=== PATIENT | female | born 1995 | race Caucasian/White ===

== ENCOUNTER 2020-07-27 08:29 | Emergency (ER) | payer SELFPAY ==
[2020-07-27] MEDS ORDERED: Dexamethasone 10 MG/ML VIAL ONE (10:21)
[2020-07-27] MEDS ORDERED: Bicillin LA 1.2 MILLION UNITS/2 ML SYRINGE ONE (10:21)
[2020-07-27 16:45] LABS: SARS-CoV-2 MS2 Positive; SARS-CoV-2 N Gene Negative; SARS-CoV-2 S Gene Negative; SARS-CoV-2 by NAA Not Detected (NotDetected); SARS-CoV-2 orf1ab Negative
== END 2020-07-27 10:30 | disposition home or self-care (01) ==
LOC: ERS 08:29
DX: J02.0 Streptococcal pharyngitis (principal); Z20.828 Contact with and (suspected) exposure to other viral communicable diseases; G43.909 Migraine, unspecified, not intractable, without status migrainosus; F17.210 Nicotine dependence, cigarettes, uncomplicated
CPT/HCPCS: 87430; 87635; 96372; 99283; J0561; J1100; U0003

== ENCOUNTER 2020-10-25 17:05 | Emergency (ER) | payer SELFPAY ==
--- NOTE | 2020-10-25 17:42 | RAD ---
Left ankle 3 views HISTORY: Left ankle injury. FINDINGS: Comminuted predominantly oblique fracture of the distal fibula is present at and just above the level of the ankle mortise. There is minimal lateral displacement of the major distal fragment and minimal apex medial angulation. Talar dome and mortise are intact. Medial and posterior malleoli within normal limits. IMPRESSION : Minimally displaced Bello class C fracture left lateral malleolus.
[2020-10-25] MEDS ORDERED: Morphine 4 MG/ML VIAL ONE (21:35)
[2020-10-25] MEDS ORDERED: Ketorolac Tromethamine 30 MG/ML VIAL ONE (21:36)
== END 2020-10-25 22:55 | disposition home or self-care (01) ==
LOC: ERS 17:05
DX: S82.62XA Displaced fracture of lateral malleolus of left fibula, initial encounter for closed fracture (principal); X50.1XXA Overexertion from prolonged static or awkward postures, initial encounter
CPT/HCPCS: 29515; 96372; J1885; J2270

== ENCOUNTER 2020-11-23 10:50 | Emergency (ER) | payer SELFPAY | END 2020-11-23 13:10 | disposition home or self-care (01) | LOC: ERS 10:50 | DX: J02.9 Acute pharyngitis, unspecified (principal); F17.210 Nicotine dependence, cigarettes, uncomplicated | CPT/HCPCS: 87081; 87430; 99283 ==

== ENCOUNTER 2021-05-20 09:00 | Emergency (ER) | payer OTHER, SELFPAY ==
[2021-05-20] MEDS ORDERED: Boostrix 0.5 ML (Tdap) VIAL ONE (10:28)
[2021-05-20] MEDS ORDERED: Ibuprofen 200 MG TAB ONE (10:28)
== END 2021-05-20 11:20 | disposition home or self-care (01) ==
LOC: EEVIPCON 09:00 → ERS 09:00
DX: S05.12XA Contusion of eyeball and orbital tissues, left eye, initial encounter (principal); S30.810A Abrasion of lower back and pelvis, initial encounter; S50.312A Abrasion of left elbow, initial encounter; S50.311A Abrasion of right elbow, initial encounter; S80.212A Abrasion, left knee, initial encounter; S80.211A Abrasion, right knee, initial encounter; S09.90XA Unspecified injury of head, initial encounter; R10.814 Left lower quadrant abdominal tenderness; R10.813 Right lower quadrant abdominal tenderness; F17.210 Nicotine dependence, cigarettes, uncomplicated; W01.0XXA Fall on same level from slipping, tripping and stumbling without subsequent striking against object, initial encounter; Y93.01 Activity, walking, marching and hiking; Y92.411 Interstate highway as the place of occurrence of the external cause; Y09 Assault by unspecified means; Z23 Encounter for immunization
CPT/HCPCS: 70450; 70486; 71046; 72125; 90471; 90715

== ENCOUNTER 2021-11-06 19:21 | Emergency (ER) | payer BC, MEDICAID ==
[2021-11-06] MEDS ORDERED: Ketorolac Tromethamine 30 MG/ML VIAL ONE (19:56)
[2021-11-06 20:33] LABS: #Lymphocytes 1.8 thou/uL (1.20-3.40); #Monocytes 0.4 thou/uL (0.11-0.59); #Neutrophils 6.1 thou/uL (1.40-6.50); %Basophils 0.5 % (0.0-1.0); %Eosinophils 0.4 % (0.0-10.0); %Lymphocytes 21.4 % (21.0-51.0); %Monocytes 5.3 % (0.0-10.0); %Neutrophils 72.5 % (42.0-75.0); Hemoglobin 14.7 g/dL (12.0-16.0); Mean Corpuscular HGB CONC 33.2 g/dL (32.0-36.0); Mean Corpuscular Hemoglobin 32.1 pg (27.0-31.0); Mean Corpuscular Volume 96.5 fL (78.0-98.0); Mean Platelet Volume 7.6 fL (7.4-10.4); Platelet Count 285 thou/uL (130-400); RBC Distribution Width 11.9 % (11.5-14.5); White Blood Cell (WBC) Count 8.4 thou/uL (4.8-10.8)
[2021-11-06 20:53] LABS: ALT (SGPT) 23 U/L (8-55); AST (SGOT) 15 U/L (5-34); Albumin 4.5 g/dL (3.5-5.0); Alkaline Phosphatase 72 U/L (40-110); Anion Gap 16 mmol/L (10-20); BUN (Urea Nitrogen) 8 mg/dL (7.0-18.7); Bilirubin, Total 0.5 mg/dL (0.2-1.2); Calc. Creatinine Clearance 0 mL/min (70-130); Carbon Dioxide 23 mmol/L (22-29); Chloride 103 mmol/L (98-107); Globulin 3.1 g/dL (2.4-3.5); Glucose 106 mg/dL (70-105); Potassium 3.9 mmol/L (3.5-5.1); Protein, Total 7.6 g/dL (6.0-8.3); Sodium 138 mmol/L (136-145)
== END 2021-11-06 21:19 | disposition home or self-care (01) ==
LOC: ERS 19:21
DX: B34.9 Viral infection, unspecified (principal); G43.909 Migraine, unspecified, not intractable, without status migrainosus; F17.210 Nicotine dependence, cigarettes, uncomplicated
CPT/HCPCS: 36415; 71045; 80053; 84484; 85025; 93005; 96374; J1885

== ENCOUNTER 2022-01-30 12:48 | Emergency (ER) | payer SELFPAY ==
[2022-01-30 13:29] LABS: #Eosinphils 0.1 thou/uL (0.0-0.7); #Lymphocytes 1.1 thou/uL (1.20-3.40); #Monocytes 0.6 thou/uL (0.11-0.59); #Neutrophils 3.9 thou/uL (1.40-6.50); %Basophils 0.2 % (0.0-1.0); %Eosinophils 2.5 % (0.0-10.0); %Lymphocytes 19.1 % (21.0-51.0); %Monocytes 9.9 % (0.0-10.0); %Neutrophils 68.4 % (42.0-75.0); Hemoglobin 13.9 g/dL (12.0-16.0); Mean Corpuscular HGB CONC 34.2 g/dL (32.0-36.0); Mean Corpuscular Hemoglobin 33.5 pg (27.0-31.0); Mean Platelet Volume 7.8 fL (7.4-10.4); Platelet Count 236 thou/uL (130-400); RBC Distribution Width 11.4 % (11.5-14.5); Red Blood Cell (RBC) Count 4.13 mill/uL (4.20-5.40); White Blood Cell (WBC) Count 5.7 thou/uL (4.8-10.8)
[2022-01-30] MEDS ORDERED: Morphine 4 MG/ML VIAL ONE (13:42)
[2022-01-30] MEDS ORDERED: Ondansetron PF 4 MG/2 ML Vial ONE (13:42)
[2022-01-30 13:50] LABS: ALT (SGPT) 14 U/L (8-55); AST (SGOT) 15 U/L (5-34); Alkaline Phosphatase 65 U/L (40-110); Anion Gap 13 mmol/L (10-20); BUN (Urea Nitrogen) 8 mg/dL (7.0-18.7); Bilirubin, Total 0.3 mg/dL (0.2-1.2); Calc. Creatinine Clearance 0 mL/min (70-130); Calcium 8.9 mg/dL (7.8-10.44); Carbon Dioxide 24 mmol/L (22-29); Chloride 107 mmol/L (98-107); Globulin 2.6 g/dL (2.4-3.5); Glucose 91 mg/dL (70-105); Potassium 3.9 mmol/L (3.5-5.1); Protein, Total 6.6 g/dL (6.0-8.3); Sodium 140 mmol/L (136-145)
[2022-01-30 14:15] LABS: BHCG - Serum Negative (NEGATIVE)
[2022-01-30 14:16] LABS: Pregs Control Background? CLEAR/WHITE (CLR/WHITE); Pregs Control Bar Appear? YES (CONTROL BAR)
[2022-01-30 14:18] LABS: Bilirubin Negative (Negative); Blood, Urine Negative (Negative); Clarity Clear (Clear); Glucose, Urine (Dipstick) Normal (Negative); Ketone, Urine Negative (Negative); Leukocyte Negative Leu/uL (Negative); Nitrite Negative (Negative); Protein, Urine (Dipstick) Negative (Neg-Trace); Specific Gravity, Urine 1.011 (1.002-1.036); Urobilinogen Normal mg/dL (Less than 2); pH, Urine 6.5 (5.0-9.0)
[2022-01-30] MEDS ORDERED: Iopamidol-370 76% 500 ML 1 ML ONE (15:21)
== END 2022-01-30 15:24 | disposition home or self-care (01) ==
LOC: ERS 12:48
DX: R19.7 Diarrhea, unspecified (principal); R11.2 Nausea with vomiting, unspecified; F17.210 Nicotine dependence, cigarettes, uncomplicated
CPT/HCPCS: 74177; 80053; 81003; 83690; 84703; 85025; 96361; 96374; 96375; J2270; J2405; Q9967

== ENCOUNTER 2022-03-26 15:08 | Emergency (ER) | payer SELFPAY | END 2022-03-26 15:40 | disposition home or self-care (01) | LOC: ERS 15:08 | DX: S01.01XD Laceration without foreign body of scalp, subsequent encounter (principal); F17.210 Nicotine dependence, cigarettes, uncomplicated ==

== ENCOUNTER 2022-04-16 20:23 | Emergency (ER) | payer SELFPAY ==
[2022-04-16] MEDS ORDERED: Ketorolac Tromethamine 30 MG/ML VIAL ONE (20:46)
[2022-04-16 20:52] LABS: #Eosinphils 0.1 thou/uL (0.0-0.7); #Lymphocytes 2.7 thou/uL (1.20-3.40); #Monocytes 0.6 thou/uL (0.11-0.59); #Neutrophils 6.4 thou/uL (1.40-6.50); %Basophils 0.3 % (0.0-1.0); %Eosinophils 0.7 % (0.0-10.0); %Lymphocytes 27.9 % (21.0-51.0); %Monocytes 5.7 % (0.0-10.0); %Neutrophils 65.4 % (42.0-75.0); Hemoglobin 14.8 g/dL (12.0-16.0); Mean Corpuscular HGB CONC 34.3 g/dL (32.0-36.0); Mean Corpuscular Hemoglobin 32.6 pg (27.0-31.0); Mean Corpuscular Volume 94.8 fL (78.0-98.0); Mean Platelet Volume 8.2 fL (7.4-10.4); Platelet Count 292 thou/uL (130-400); RBC Distribution Width 11.4 % (11.5-14.5); Red Blood Cell (RBC) Count 4.56 mill/uL (4.20-5.40); White Blood Cell (WBC) Count 9.8 thou/uL (4.8-10.8)
[2022-04-16 20:53] LABS: BHCG - Serum Negative (NEGATIVE); Pregs Control Background? CLEAR/WHITE (CLR/WHITE); Pregs Control Bar Appear? YES (CONTROL BAR)
[2022-04-16 21:14] LABS: ALT (SGPT) 19 U/L (8-55); AST (SGOT) 15 U/L (5-34); Albumin 4.7 g/dL (3.5-5.0); Alkaline Phosphatase 72 U/L (40-110); Anion Gap 16 mmol/L (10-20); BUN (Urea Nitrogen) 10 mg/dL (7.0-18.7); Bilirubin, Total 0.5 mg/dL (0.2-1.2); Calc. Creatinine Clearance 0 mL/min (70-130); Calcium 9.8 mg/dL (7.8-10.44); Carbon Dioxide 21 mmol/L (22-29); Chloride 103 mmol/L (98-107); Estimated GFR 115; Glucose 94 mg/dL (70-105); Potassium 3.1 mmol/L (3.5-5.1); Protein, Total 7.7 g/dL (6.0-8.3); Sodium 137 mmol/L (136-145)
== END 2022-04-16 21:40 | disposition home or self-care (01) ==
LOC: ERS 20:23
DX: R07.2 Precordial pain (principal); R55 Syncope and collapse; F17.210 Nicotine dependence, cigarettes, uncomplicated
CPT/HCPCS: 71045; 80053; 84484; 84703; 85025; 93005; 96361; 96374; J1885

== ENCOUNTER 2023-10-12 06:50 | Emergency (ER) | payer SELFPAY | END 2023-10-12 07:20 | disposition home or self-care (01) | LOC: ERS 06:50 | DX: S00.83XA Contusion of other part of head, initial encounter (principal); F17.210 Nicotine dependence, cigarettes, uncomplicated; Y04.2XXA Assault by strike against or bumped into by another person, initial encounter; Y93.89 Activity, other specified | CPT/HCPCS: 99283 ==

== ENCOUNTER 2023-11-20 12:22 | Emergency (ER) | payer SELFPAY ==
[2023-11-20 13:22] LABS: Influenza A by NAA Not Detected (NotDetected); Influenza B by NAA Not Detected (NotDetected); SARS-CoV-2 NAA Rapid Test Not Detected (NotDetected)
== END 2023-11-20 13:54 | disposition home or self-care (01) ==
LOC: ERS 12:22
DX: J06.9 Acute upper respiratory infection, unspecified (principal); R09.81 Nasal congestion; F17.210 Nicotine dependence, cigarettes, uncomplicated
CPT/HCPCS: 99283

== ENCOUNTER 2024-06-09 13:58 | Emergency (ER) | payer SELFPAY ==
[2024-06-09 16:14] LABS: Influenza A by NAA Not Detected (NotDetected); Influenza B by NAA Not Detected (NotDetected); SARS-CoV-2 NAA Rapid Test Not Detected (NotDetected)
== END 2024-06-09 16:41 | disposition home or self-care (01) ==
LOC: ERS 13:58
DX: B34.9 Viral infection, unspecified (principal); J02.9 Acute pharyngitis, unspecified; F17.210 Nicotine dependence, cigarettes, uncomplicated
CPT/HCPCS: 71045; 93005